=== PATIENT | male | born 1985 | race Caucasian/White ===

== ENCOUNTER 2017-01-27 13:41 | Observation (INO) | payer BC ==
[2017-01-27] MEDS ORDERED: NITROGLYCERIN OINT 1 INCH/GM PACKET TOPICAL STA (14:55)
[2017-01-27] MEDS ORDERED: ASPIRIN 81 MG CHEW PO STA (14:55)
--- NOTE | 2017-01-27 15:20 | XR ---
EXAMINATION TYPE: XR chest 2V DATE OF EXAM: 01/27/2017 COMPARISON: NONE HISTORY: Chest pain TECHNIQUE: Frontal and lateral views of the chest are obtained. FINDINGS: There is no focal air space opacity, pleural effusion, or pneumothorax seen. The cardiac silhouette size is within normal limits. There are overlying cardiac leads. There may be a spinal cur vature. The osseous structures are intact. IMPRESSION: No acute cardiopulmonary process.
[2017-01-27 15:24] LABS: ALT 101 U/L (21-72); AST 47 U/L (17-59); Alkaline Phosphatase 67 U/L (38-126); Anion Gap 11 mmol/L; Blood Urea Nitrogen 10 mg/dL (9-20); Calcium 9.7 mg/dL (8.4-10.2); Carbon Dioxide 25 mmol/L (22-30); Chloride 104 mmol/L (98-107); Glucose 78 mg/dL (74-99); Non-African American GFR(MDRD) >60 (>60 ml/min/1.73 sqM); Potassium 4.2 mmol/L (3.5-5.1); Sodium 140 mmol/L (137-145); Total Bilirubin 1.1 mg/dL (0.2-1.3); Total Protein 7.5 g/dL (6.3-8.2)
[2017-01-27 15:36] LABS: Basophils % (A) 0 %; CH 31.3; CHCM 34.9; Eosinophils # (A) 0.1 k/uL (0-0.7); Eosinophils % (A) 2 %; HCT 43.9 % (39.0-53.0); HGB 15.4 gm/dL (13.0-17.5); Luc % (Auto) 2; Lymphocytes # (A) 1.7 k/uL (1.0-4.8); Lymphocytes % (A) 25 %; MCH 31.5 pg (25.0-35.0); MCV 89.9 fL (80.0-100.0); Mean Platelet Volume 7.9; Monocytes # (A) 0.3 k/uL (0-1.0); Monocytes % (A) 5 %; Neutrophils # (A) 4.4 k/uL (1.3-7.7); Neutrophils % (A) 67 %; RBC 4.88 m/uL (4.30-5.90); WBC 6.6 k/uL (3.8-10.6); WBC (Perox) 6.93
[2017-01-27 15:37] LABS: Creatine Kinase 457 U/L (55-170)
[2017-01-27 15:50] LABS: Troponin I <0.012 ng/mL (0.000-0.034)
[2017-01-27 15:55] LABS: Creatine Kinase MB 3.9 ng/mL (0.0-2.4)
--- NOTE | 2017-01-27 17:00 | ED ---
Chest Pain HPI - General Chief Complaint: Chest Pain Stated Complaint: Chest Pain Time Seen by Provider: 01/27/17 14:48 Source: patient Mode of arrival: wheelchair Limitations: no limitations - History of Present Illness Initial Comments: This 31-year-old white male presents complaining of a chest pressure. This is in the midsternal region and bilateral chest. It is described as a tightness type of sensation. There is no radiation. He states that it there is a pleuritic component. It is not exertionally related. He denies any previous similar incidents. He denies any leg pain or swelling or history of DVT or PE. He denies any previous cardiac history. He's never had a stress test or heart catheterization. It is been present over the last 5 days. No other complaints or modifying factors. - Related Data Home Medications Medication Instructions Recorded Confirmed Albuterol Nebulized [Ventolin 2.5 mg INHALATION RT-DAILY PRN 01/27/17 01/27/17 Nebulized] Cyclobenzaprine [Flexeril] 10 mg PO DAILY PRN 01/27/17 01/27/17 Omeprazole [PriLOSEC] 20 mg PO DAILY 01/27/17 01/27/17 Oxymetazoline HCl [Vicks Sinex] 1 spray EA NOSTRIL DAILY PRN 01/27/17 01/27/17 Allergies Allergy/AdvReac Type Severity Reaction Status Date / Time topiramate [From Topamax] Allergy Anaphylaxis Verified 01/27/17 15:33 Review of Systems ROS Statement: Those systems with pertinent positive or pertinent negative responses have been documented in the HPI. ROS Other: All systems not noted in ROS Statement are negative. Past Medical History Past Medical History: No Reported History History of Any Multi-Drug Resistant Organisms: None Reported Past Surgical History: No Surgical Hx Reported Past Psychological History: No Psychological Hx Reported Smoking Status: Former smoker Past Alcohol Use History: None Reported Past Drug Use History: None Reported General Exam - General Exam Comments Initial Comments: GENERAL: The patient is well nourished and well hydrated. VITAL SIGNS: Heart rate, blood pressure, respiratory rate reviewed as recorded in nurse's notes. EYES: Pupils are round and reactive. Extraocular movements are intact. No conjunctival / lid redness or swelling. ENT: No external evidence of injury, swelling, or ecchymosis. Airway is patent. Throat is clear. NECK: Nontender. No swelling or evidence of injury. No subcutaneous emphysema. Trachea is midline. No thyroid mass. HEART: Regular rate and rhythm. Good peripheral pulses. LUNGS/CHEST: Breath sounds clear and equal bilaterally. No rales, rhonchi, or wheezes. No ecchymosis, subcutaneous emphysema, or tenderness. ABDOMEN: Abdomen soft without tenderness. No palpable masses or organomegaly. No peritoneal signs. No abdominal wall swelling or ecchymosis. EXTREMITIES: No extremity tenderness. Normal muscle tone and function. No thoracolumbar tenderness. NEUROLOGIC: Sensation is grossly intact. Cranial nerve exam reveals face is symmetrical, tongue is midline, speech is clear. SKIN: No abrasions or ecchymosis is noted. No induration or masses noted. PSYCHIATRIC: Alert and oriented. Appropriate behavior and judgment. Limitations: no limitations Course Vital Signs 01/27/17 01/27/17 01/27/17 13:45 14:55 16:55 Temperature 97.7 F Pulse Rate 71 59 L 68 Respiratory 17 20 18 Rate Blood Pressure 148/84 158/101 131/66 O2 Sat by Pulse 99 97 96 Oximetry Chest Pain MDM - MDM The patient was seen and examined. All diagnostics were reviewed. An IV started he is placed on the registered nurse cardiac telemetry. No ectopy is identified. The EKG shows a normal sinus rhythm at a rate of 65. There is no acute ST-T wave changes identified. The MS interval is 156, QRS duration is 98, and the QTC intervals 409. He received an aspirin at the urgent care prior to arrival so this was withheld. He does receive some Nitropaste. The chest x-ray does not show any acute process. The laboratories reviewed. His CPK and CK-MB are slightly elevated but the troponin is negative. Remainder of labs are essentially within normal limits. It is felt as though he would benefit from admission to the hospital to rule out acute coronary syndrome. Case will be discussed with internal medicine shortly. The patient is feeling improved on recheck. Disposition Clinical Impression: Chest pain, Unstable angina pectoris Disposition: HOME SELF-CARE Condition: Good Time of Disposition: 18:25 Decision Date: 01/27/17 Decision Time: 18:25
[2017-01-27 17:35] LABS: INR 1.1 (<1.1); Partial Thromboplastin Time 26.9 sec (22.0-30.0); Prothrombin Time 10.7 sec (9.0-12.0)
[2017-01-27] MEDS ORDERED: HEPARIN SODIUM,PORCINE 5,000 UNIT/ML 1 ML VIAL IV ONE (19:57)
[2017-01-27] MEDS ORDERED: NITROGLYCERIN SL TABS 0.4 MG TAB SUBLINGUAL PRN (19:57)
[2017-01-27] MEDS ORDERED: HEPARIN SODIUM,PORCINE 5,000 UNIT/ML 1 ML VIAL IV PRN (19:57)
[2017-01-27] MEDS ORDERED: HEPARIN SODIUM,PORCINE/D5W PMX 25,000 UNIT in DEXTROSE/WATER 1 500ML.BAG IV SCH (20:00)
[2017-01-27] MEDS ORDERED: CYCLOBENZAPRINE 10 MG TAB PO PRN (20:01)
[2017-01-27] MEDS ORDERED: OXYMETAZOLINE 0.05% NASL SPRAY 15 ML EA NOSTRIL PRN (20:01)
[2017-01-27] MEDS ORDERED: ALBUTEROL NEBULIZED 2.5 MG/3 ML INHALATION PRN (20:01)
[2017-01-27 21:10] VITALS: RESP 18
[2017-01-27 21:21] VITALS: BMI 37.5
[2017-01-27] MEDS ORDERED: ACETAMINOPHEN TAB 325 MG TAB PO PRN (21:24)
[2017-01-27 21:43] LABS: Creatine Kinase 361 U/L (55-170)
[2017-01-27 21:56] LABS: Troponin I <0.012 ng/mL (0.000-0.034)
[2017-01-27 21:57] LABS: Creatine Kinase MB 3.2 ng/mL (0.0-2.4)
[2017-01-28] MEDS: NITROGLYCERIN OINT 1 INCH/GM PACKET TOPICAL SCH ×3 (01:47→13:26)
[2017-01-28 02:21] LABS: Mean Platelet Volume 7.7
[2017-01-28 02:59] LABS: Creatine Kinase 329 U/L (55-170)
[2017-01-28 03:00] LABS: Cholesterol 145 mg/dL (<200); HDL Cholesterol 28 mg/dL (40-60); Triglycerides 333 mg/dL (<150)
[2017-01-28 03:12] LABS: Troponin I <0.012 ng/mL (0.000-0.034)
[2017-01-28 03:24] LABS: Creatine Kinase MB 2.9 ng/mL (0.0-2.4)
[2017-01-28] MEDS ORDERED: PANTOPRAZOLE 40 MG TABLET PO SCH (07:30)
[2017-01-28] MEDS ORDERED: ASPIRIN 325 MG TAB PO SCH (09:00)
[2017-01-28 12:10] VITALS: BP 144/95; PULSE 93; TEMP 97.4
--- NOTE | 2017-01-28 13:50 | CONS ---
This is a 31-year-old gentleman who is a reasonably active person, came into the hospital yesterday evening with complaints of having a nondescript chest pressure that has been going on for nearly 4 days or so, on and off. There is some pleuritic component to it but mostly are caused with the physical movement. Not related to physical activity. Only when he moves in a certain way, he has discomfort but it seem to persistently bother him. He has no other major risk factors. He does have history of bronchial asthma, uses some inhalers. At the time of my evaluation, his symptoms have resolved and resting comfortably. I am recommending that we discontinue heparin drip performed on the regular stress test and if this is normal, he can be discharged. PAST MEDICAL HISTORY: Unremarkable for any major medical problems other than bronchial asthma for which he takes some inhalers. MEDICATIONS: He takes Ventolin inhaler p.r.n. and Prilosec p.r.n. ALLERGIES: He is allergic to TOPIRAMATE. Review of systems are remarkable for nondescript chest tightness and pressure. No hematemesis, melena, genitourinary symptoms, fever with chills or cough with expectoration. EKG revealed a sinus mechanism with prominent J-point in precordial leads. No acute findings. The chest x-ray did not reveal any significant abnormalities. The d-dimer was unremarkable. Troponin levels were unremarkable. On examination, blood pressure was 130/70, pulse rate of 68 per minute and regular. HEENT: Unremarkable. Fundus was not examined by me. Neck is supple, no JVD. I do not hear a carotid bruit. There is no thyromegaly. Heart exam reveals S1, S2 heard normally without a rub, murmur or gallop. Lungs are clear. Abdomen is soft, nontender. Lower extremities reveal normal pulses, no edema. Central nervous system is normal. EKG reveals sinus mechanism, J-point prominence, no acute changes. IMPRESSION: 1. Atypical musculoskeletal chest pain. 2. Opacity. 3. History of bronchial asthma. PLAN: I am recommending a regular stress test and if this is normal, he can be discharged. I discussed my thoughts in detail with the patient. Thank you very much for the consult. DEISY
--- NOTE | 2017-01-28 14:45 | EST ---
Referral Reason:CHEST PAIN MEASUREMENTS -------- HEIGHT: 188.0 cm WEIGHT: 136.1 kg BP: FINDINGS -------- Utilizing the standard Kareem protocol the patient was exercised for 9minutes, 30seconds, achieving a maximum heart rate of 166 , which is 89% of predicted maximal heart rate. There was physiologic heart rate and blood pressure response to exercise. Max Heart Rate: 166 % of Max Predicted Heart Rate: 89% Rest Heart Rate: 83 Rest BP: 166/79 Max BP: 217/108 Mets Achieved: 11.1 The test was stopped because of fatigue. This level of exercise represents an average exercise tolerance for age. Sinus rhythm. In response to stress, the ECG showed no ST-T wave changes (see exercise report for details). In response to stress, the ECG showed no ST-T wave changes (see exercise report for details). There were normal blood pressure and heart rate responses to stress. LV size, wall thickness and systolic function are normal, with an EF of 60%. Echo images were acquired at peak stress which demonstrated appropriate augmentation of all left ventricular segments. CONCLUSIONS -------- 1. The test was stopped because of fatigue. 2. This level of exercise represents an average exercise tolerance for age. 3. In response to stress, the ECG showed no ST-T wave changes (see exercise report for details). 4. No 2D echocardiographic evidence of inducible ischemia to achieved workload. MIDDLE SCHOOL TECHNOLOGY TEACHER: Codie Polanco RDCS MTDD
[2017-01-28] MEDS ORDERED: methylPREDNISolone SOD SUCCI 125 MG/2 ML VIAL IV STA (14:54)
[2017-01-28] MEDS ORDERED: KETOROLAC 30 MG/ML 1 ML VIAL IVP STA (14:54)
--- NOTE | 2017-01-28 16:54 | P.HPIM ---
History of Present Illness H&P Date: 01/28/17 (Discharge summary as well) Chief Complaint: Chest pain 31-year-old gentleman with no significant family medical history of coronary disease comes in the hospital with chest pain 4 days. Patient states that it was sudden onset and was midsternal radiating to both sides of the chest exacerbated with deep breathing not associated with cough no recent fevers chills nausea vomiting diarrhea or abdominal pain reported Patient does not smoke tobacco or marijuana No previous similar episodes are reported Patient states that he exercises 1-2 times a week Prior to the onset of symptoms patient stated that he walked a mile on his treadmill without any recurrence of symptoms States that the symptoms have been kind of persistent since then hence came to the hospital for ongoing care at this time patient states that his symptoms are slightly improved after receiving some NSAIDs EKG did not reveal ST-T wave changes Review of Systems All systems: negative (Noted in HPI) Past Medical History Past Medical History: Asthma, GERD/Reflux History of Any Multi-Drug Resistant Organisms: None Reported Past Surgical History: No Surgical Hx Reported Past Anesthesia/Blood Transfusion Reactions: No Reported Reaction Past Psychological History: No Psychological Hx Reported Smoking Status: Former smoker Past Alcohol Use History: None Reported Past Drug Use History: None Reported Medications and Allergies Home Medications Medication Instructions Recorded Confirmed Type Albuterol Nebulized [Ventolin 2.5 mg INHALATION RT-DAILY PRN 01/27/17 01/27/17 History Nebulized] Cyclobenzaprine [Flexeril] 10 mg PO DAILY PRN 01/27/17 01/27/17 History Omeprazole [PriLOSEC] 20 mg PO DAILY 01/27/17 01/27/17 History Oxymetazoline HCl [Vicks Sinex] 1 spray EA NOSTRIL DAILY PRN 01/27/17 01/27/17 History Allergies Allergy/AdvReac Type Severity Reaction Status Date / Time topiramate [From Topamax] Allergy Anaphylaxis Verified 01/27/17 15:33 Physical Exam Vitals: Vital Signs Temp Pulse Pulse Resp BP BP Pulse Ox 01/28/17 12:09 97.4 F L 93 18 144/95 93 L 01/28/17 12:00 18 01/28/17 11:05 96 01/28/17 08:00 18 01/28/17 07:39 97.5 F L 64 18 135/79 96 01/28/17 05:00 97.6 F 80 18 135/79 80 L 01/28/17 04:00 98.0 F 53 L 18 130/62 95 01/28/17 00:00 18 01/27/17 21:07 98.5 F 67 18 137/64 95 01/27/17 21:00 62 18 01/27/17 20:17 97.9 F 64 16 145/67 97 01/27/17 19:09 97.0 F L 71 16 152/83 96 01/27/17 17:55 117/72 01/27/17 16:55 68 18 131/66 96 Intake and Output 01/28/17 01/28/17 01/28/17 06:59 14:59 22:59 Intake Total 134.667 240 Balance 134.667 240 Intake: IV 0 0 Invasive Line 1 0 0 Intake, IV Titration 134.667 Amount Heparin Sodium,Porcine/ 134.667 D5w Pmx 25,000 unit In Dextrose/Water 1 500ml. bag @ 7.4 UNITS/KG/HR 20. 13 mls/hr IV .Q24H [facility] Rx #:[id number] Oral 240 Other: Voiding Method Toilet Toilet # Voids 1 Physical exam Gen. appearance oriented 3 in no distress Neck is supple no JVD Lungs good air entry clear to auscultation no rhonchi or wheezing Heart S1-S2 heard regular rate and rhythm no murmurs appreciated Abdomen is soft nontender no organomegaly bowel sounds are intact Neurologically cranial nerves II-12 grossly intact no focal motor or sensory deficits noted Skin no abnormalities appreciated Results CBC & Chem 7: 01/28/17 02:10 01/27/17 15:00 Labs: Abnormal Lab Results - Last 24 Hours (Table) 01/27/17 01/28/17 01/28/17 Range/Units 21:01 02:10 02:10 APTT (22.0-30.0) sec Total Creatine Kinase 361 H 329 H (55-170) U/L CK-MB (CK-2) 3.2 H* 2.9 H* (0.0-2.4) ng/mL Triglycerides 333 H (<150) mg/dL HDL Cholesterol 28 L (40-60) mg/dL 01/28/17 Range/Units 08:59 APTT 32.1 H (22.0-30.0) sec Total Creatine Kinase (55-170) U/L CK-MB (CK-2) (0.0-2.4) ng/mL Triglycerides (<150) mg/dL HDL Cholesterol (40-60) mg/dL Assessment and Plan Plan: 1 atypical chest pain likely pleuritic in nature Plan Patient underwent a dobutamine echo appeared to have poor exercise tolerance patient was only able to perform less than 5 minutes on the modified protocol Discussed patient should increase his intensity Patient will be given a dose of Solu-Medrol for his pleuritic chest pain and one dose of Toradol 30 mg IV thereafter will be discharged home and will is recommended to follow up with Dr. Barclay in 1 week if patient has recurrent symptoms discussed using NSAIDs with [id number] ibuprofen thereafter
--- NOTE | 2017-01-29 16:13 | ECHOF ---
Referral Reason: MEASUREMENTS -------- HEIGHT: 188.0 cm WEIGHT: 136.1 kg BP: 135/79 RVIDd: 2.5 cm (< 3.3) IVSd: 1.2 cm (0.6 - 1.1) LVIDd: 4.6 cm (3.9 - 5.3) LVPWd: 1.3 cm (0.6 - 1.1) IVSs: 1.4 cm LVIDs: 4.0 cm LVPWs: 1.4 cm LA Diam: 4.0 cm (2.7 - 3.8) LAESV Index (A-L): 22.41 ml/m Ao Diam: 3.3 cm (2.0 - 3.7) AV Cusp: 2.2 cm (1.5 - 2.6) LA Diam: 4.7 cm (2.7 - 3.8) MV EXCURSION: 18.742 mm (> 18.000) MV EF SLOPE: 74 mm/s (70 - 150) EPSS: 0.7 cm MV E Ray: 0.79 m/s MV DecT: 179 ms MV A Ray: 0.56 m/s MV E/A Ratio: 1.42 RAP: 5.00 mmHg RVSP: 29.26 mmHg FINDINGS -------- Sinus rhythm. This was a technically adequate study. Morbid Obesity There is mild concentric left ventricular hypertrophy. Overall left ventricular systolic function is normal with, an EF between 55 - 60 %. The right ventricle is normal in size. Normal LA size by volume 22+/-6 ml/m2. The right atrial size is normal. The aortic valve is trileaflet, and appears structurally normal. No aortic stenosis or regurgitation. The mitral valve is normal. Mild mitral regurgitation is present. Mild tricuspid regurgitation present. There is no evidence of pulmonary hypertension. The right ventricular systolic pressure, as measured by Doppler, is 29.26mmHg. The pulmonic valve is normal. Trace/mild (physiologic) pulmonic regurgitation. The aortic root size is normal. There is no pericardial effusion. CONCLUSIONS -------- 1. Sinus rhythm. 2. Trace/mild (physiologic) pulmonic regurgitation. 3. The aortic root size is normal. 4. There is no pericardial effusion. 5. Morbid Obesity 6. There is mild concentric left ventricular hypertrophy. 7. Overall left ventricular systolic function is normal with, an EF between 55 - 60 %. 8. Normal LA size by volume 22+/-6 ml/m2. 9. The aortic valve is trileaflet, and appears structurally normal. No aortic stenosis or regurgitation. 10. Mild mitral regurgitation is present. 11. Mild tricuspid regurgitation present. 12. There is no evidence of pulmonary hypertension. FINANCIAL REPORTING ADVISOR: Codie Polanco RDCS
== END 2017-01-28 15:33 | disposition home or self-care (01) ==
LOC: EC 13:41 → 3OBS 19:57
PROVIDERS: ADMIT Internal Medicine; ATTEND Internal Medicine
DX: R07.89 Other chest pain (principal); K21.9 Gastro-esophageal reflux disease without esophagitis; J45.909 Unspecified asthma, uncomplicated; Z79.899 Other long term (current) drug therapy; Z88.8 Allergy status to other drugs, medicaments and biological substances; Z87.891 Personal history of nicotine dependence
CPT/HCPCS: 96376 ×2; 99285; 96365; 96366 ×2; 96375; 36415; 94760; 93005; 93017; 93306; 93350; 85379; 83880; 80061; 80053; 82550 ×2; 82553 ×2; 83735; 84484 ×2; 85025; 85049; 85610; 85730 ×2; 71020; G0378 ×2; J1644 ×2; J2930; J1885

== ENCOUNTER → 2017-02-22 | Outpatient (CLI) | payer BC ==
[2017-02-23 12:34] LABS: Alternaria alternata IgE 3.57 kU/L (<0.35); Asperg. fumagatus IgE <0.35 kU/L (<0.35); Asperg. fumagatus IgE Class CLASS 0; Aureo. pullulans IgE <0.35 kU/L (<0.35); Avocado Class CLASS 0; Banana IgE Class CLASS 0; Birch(Com.Silvr) IgE Class CLASS II; Candida albicans IgE Class CLASS 0; Cat Epith & Dander IgE <0.35 kU/L (<0.35); Cat Epith & Dander IgE Class CLASS 0; Clad herbarum IgE <0.35 kU/L (<0.35); Clad herbarum IgE Class CLASS 0; Com. Pigweed IgE 0.54 kU/L (<0.35); Com. Pigweed IgE Class CLASS I; Common Ragweed IgE Class CLASS II; Dermato. Pteronyssinus Class CLASS III; Dermato. Pteronyssinus IgE 5.18 kU/L (<0.35); Dermato. farinae IgE 6.36 kU/L (<0.35); Dermato. farinae IgE Class CLASS III; English Plantain IgE Class CLASS 0; Epicoccum purpurascens Class CLASS 0; Epicoccum purpurascens IgE <0.35 kU/L (<0.35); Hazelnut IgE 1.04 kU/L (<0.35); Hazelnut IgE Class CLASS II; Johnson Grass IgE Class CLASS II; Kiwi IgE <0.35 kU/L (<0.35); Kiwi IgE Class CLASS 0; Lamb's Quarter IgE 0.53 kU/L (<0.35); Lamb's Quarter IgE Class CLASS I; Latex IgE Class CLASS 0; Maple (Box Elder) IgE 0.89 kU/L (<0.35); Maple (Box Elder) IgE Class CLASS II; Mucor racemosus IgE <0.35 kU/L (<0.35); Mucor racemosus IgE Class CLASS 0; Oak IgE 0.61 kU/L (<0.35); Rhizopus nigricans IgE <0.35 kU/L (<0.35); Rhizopus nigricans IgE Class CLASS 0; S.rostrata/Helminth Class CLASS 0; S.rostrata/Helminth IgE <0.35 kU/L (<0.35); Sycamore(Mpl.Lf) IgE <0.35 kU/L (<0.35); Sycamore(Mpl.Lf) IgE Class CLASS 0; Timothy Grass IgE 6.02 kU/L (<0.35); Timothy Grass IgE Class CLASS III; Walnut Tree IgE 0.38 kU/L (<0.35); White Ash IgE Class CLASS 0
== END | disposition home or self-care (01) ==
LOC: LABWHC1 11:09
PROVIDERS: ATTEND Otolaryngology
DX: J30.89 Other allergic rhinitis (principal)
CPT/HCPCS: 36415; 86003

== ENCOUNTER 2022-10-01 12:06 | Emergency (ER) | payer BC ==
[2022-10-01 12:43] VITALS: RESP 20; TEMP 98
--- NOTE | 2022-10-01 13:50 | ED ---
Abdominal Pain HPI - General Source: patient, RN notes reviewed Mode of arrival: ambulatory Limitations: no limitations <Rafael Mattson - Last Filed: 10/01/22 16:50> <Kimber Robert - Last Filed: 10/02/22 01:11> - General Chief Complaint: Abdominal Pain Stated Complaint: painful bowel movement Time Seen by Provider: 10/01/22 13:50 - History of Present Illness Initial Comments: 44-year-old male presents emergency department for rectal pain. Patient states he just finished Paxlovid for covid. Patient states that he started having severe pain with almost. He states he is not straining is no trauma he states he feels like he had a bowel movement with razor blades. Patient states he has no significant bleeding is no abdominal pain he states he had hemorrhoids in the past does not feel similar (Rafael Mattson) Patient is a 36-year-old male presenting with chief complaint of rectal pain. Patient reports pain with bowel movements for the last 2 days. He states that it feels like "razor blades". Patient did notice a very small amount of dark red blood when he wipes. Patient has history of hemorrhoids, states that this does not feel like previous hemorrhoids. He has been using hemorrhoid creams and suppositories which has not helped the pain. He has been using sitz baths as needed. No abdominal pain, diarrhea, constipation, fever, chills. (Sarahy Robert) - Related Data Home Medications Medication Instructions Recorded Confirmed Albuterol Nebulized [Ventolin 2.5 mg INHALATION RT-DAILY PRN 01/27/17 01/27/17 Nebulized] Cyclobenzaprine [Flexeril] 10 mg PO DAILY PRN 01/27/17 01/27/17 Omeprazole [PriLOSEC] 20 mg PO DAILY 01/27/17 01/27/17 Oxymetazoline HCl [Vicks Sinex] 1 spray EA NOSTRIL DAILY PRN 01/27/17 01/27/17 Previous Rx's Medication Instructions Recorded Lidocaine 5% Oint [Xylocaine 5% 1 applic TOPICAL BID #50 gm 10/01/22 Oint] Allergies Allergy/AdvReac Type Severity Reaction Status Date / Time topiramate [From Topamax] Allergy Anaphylaxis Verified 10/01/22 12:42 Review of Systems ROS Other: All systems not noted in ROS Statement are negative. <Rafael Mattson - Last Filed: 10/01/22 16:50> ROS Other: All systems not noted in ROS Statement are negative. <Kimber Robert - Last Filed: 10/02/22 01:11> ROS Statement: Those systems with pertinent positive or pertinent negative responses have been documented in the HPI. Past Medical History Past Medical History: Asthma, GERD/Reflux History of Any Multi-Drug Resistant Organisms: None Reported Past Surgical History: No Surgical Hx Reported Past Anesthesia/Blood Transfusion Reactions: No Reported Reaction Past Psychological History: No Psychological Hx Reported Smoking Status: Former smoker Past Alcohol Use History: None Reported Past Drug Use History: None Reported <Rafael Mattson - Last Filed: 10/01/22 16:50> General Exam Limitations: no limitations <Rafael Mattson - Last Filed: 10/01/22 16:50> Limitations: no limitations General appearance: alert, in no apparent distress Head exam: Present: atraumatic, normocephalic, normal inspection Eye exam: Present: normal appearance Neck exam: Present: normal inspection, full ROM Rectal exam: Present: normal inspection, normal rectal tone. Absent: hemorrhoids Neurological exam: Present: alert, oriented X3, CN II-XII intact Psychiatric exam: Present: normal affect, normal mood Skin exam: Present: warm, dry, intact, normal color. Absent: rash <Kimber Robert - Last Filed: 10/02/22 01:11> - General Exam Comments Initial Comments: Visual Physical Exam Vital signs reviewed General: Well-appearing, nontoxic, no acute distress. Head: Normocephalic, atraumatic Eyes: PERRLA, EOMI ENT: Airway patent Chest: Nonlabored breathing Skin: No visual rash, normal skin tone Neuro: Alert and oriented 3 Musculoskeletal: No gross abnormalities (Rafael Mattson) Course Vital Signs 10/01/22 10/01/22 10/01/22 12:37 14:06 16:49 Temperature 98.0 F Pulse Rate 93 117 H 65 Respiratory 20 20 Rate Blood Pressure 146/93 149/100 134/96 O2 Sat by Pulse 96 97 95 Oximetry Medical Decision Making - Lab Data Result diagrams: 10/01/22 14:03 03/16/23 14:03 <Rafael Mattson - Last Filed: 10/01/22 16:50> - Lab Data Result diagrams: 10/01/22 14:03 10/01/22 14:03 <Kimber Robert - Last Filed: 10/02/22 01:11> - Medical Decision Making Was pt. sent in by a medical professional or institution ([facility], [facility], urgent care, hospital, or jail...) When possible be specific @ -No Did you speak to anyone other than the patient for history (EMS, parent, family, police, friend...)? What history was obtained from this source @ -No Did you review nursing and triage notes (agree or disagree)? Why? @ -I reviewed and agree with nursing and triage notes Were old charts reviewed (outside hosp., previous admission, EMS record, old EKG, old radiological studies, urgent care reports/EKG's, jail records)? Report findings @ -No old charts were reviewed Differential Diagnosis (chest pain, altered mental status, abdominal pain women, abdominal pain men, vaginal bleeding, weakness, fever, dyspnea, syncope, headache, dizziness, GI bleed, back pain, seizure, CVA, palpatations, mental health, musculoskeletal)? @ -Differential diagnosis includes anal fissure, hemorrhoid, anorectal abscess, this is not an all inclusive list EKG interpreted by me (3pts min.). @ -As above X-rays interpreted by me (1pt min.). @ -None done CT interpreted by me (1pt min.). @ -None done U/S interpreted by me (1pt. min.). @ -None done What testing was considered but not performed or refused? (CT, X-rays, U/S, labs)? Why? @ -None What meds were considered but not given or refused? Why? @ -None Did you discuss the management of the patient with other professionals (professionals i.e. [facility], [facility] [employer], lab, RT, psych nurse, social media community manager, rn emergency, teacher, founder and chief executive officer, patient case manager)? Give summary @ -No Was smoking cessation discussed for >3mins.? @ -No Was critical care preformed (if so, how long)? @ -No Were there social determinants of health that impacted care today? How? (Homelessness, low income, unemployed, alcoholism, drug addiction, transportation, low edu. Level, literacy, decrease access to med. care, shelter, rehab)? @ -No Was there de-escalation of care discussed even if they declined (Discuss DNR or withdrawal of care, Hospice)? DNR status @ -No What co-morbidities impacted this encounter? (DM, HTN, Smoking, COPD, CAD, Cancer, CVA, ARF, Chemo, Hep., AIDS, mental health diagnosis, sleep apnea, morbid obesity)? @ -None Was patient admitted / discharged? Hospital course, mention meds given and route, prescriptions, significant lab abnormalities, going to OR and other pertinent info. @ -Patient is a 36-year-old male presenting with chief complaint of rectal pain with bowel movements the last 2 days. Patient states the pain feels like "razor blades". On physical examination no hemorrhoids are noted, patient has pain when assessing for rectal tone and internal hemorrhoids. Patient's pain and presentation is most consistent with anal fissures. Patient is educated on supportive treatment and prescribed lidocaine ointment for discomfort. Patient is instructed to take Metamucil and MiraLAX as needed to keep stools loose and prevent any constipation which would further worsened symptoms. Use sitz baths as needed. Follow-up with PCP. Report back to ER with any new or worsening symptoms. Discussed return parameters and answered all questions. Patient conveyed verbal understanding and agreed to the plan. I discussed this case in detail with my attending Dr. Izaguirre Undiagnosed new problem with uncertain prognosis? @ -No Drug Therapy requiring intensive monitoring for toxicity (Heparin, Nitro, Insulin, Cardizem)? @ -No Were any procedures done? @ -No Diagnosis/symptom? @ -Anal fissure Acute, or Chronic, or Acute on Chronic? @ -Acute Uncomplicated (without systemic symptoms) or Complicated (systemic symptoms)? @ -Uncomplicated Side effects of treatment? @ -No Exacerbation, Progression, or Severe Exacerbation? @ -No Poses a threat to life or bodily function? How? (Chest pain, [place], [place], pneumonia, PE, COPD, DKA, ARF, appy, cholecystitis, CVA, Diverticulitis, Homicidal, Suicidal, threat to staff... and all critical care pts) @ -No (Kimber Robert) - Lab Data Lab Results 10/01/22 10/01/22 Range/Units 14:03 14:03 WBC 5.8 (3.8-10.6) k/uL RBC 5.46 (4.30-5.90) m/uL Hgb 17.1 (13.0-17.5) gm/dL Hct 49.6 (39.0-53.0) % MCV 90.8 (80.0-100.0) fL MCH 31.3 (25.0-35.0) pg MCHC 34.4 (31.0-37.0) g/dL RDW 11.6 (11.5-15.5) % Plt Count 245 (150-450) k/uL MPV 8.1 Neutrophils % 65 % Lymphocytes % 25 % Monocytes % 6 % Eosinophils % 2 % Basophils % 1 % Neutrophils # 3.7 (1.3-7.7) k/uL Lymphocytes # 1.5 (1.0-4.8) k/uL Monocytes # 0.4 (0-1.0) k/uL Eosinophils # 0.1 (0-0.7) k/uL Basophils # 0.0 (0-0.2) k/uL Sodium 138 (137-145) mmol/L Potassium 4.6 (3.5-5.1) mmol/L Chloride 103 (98-107) mmol/L Carbon Dioxide 27 (22-30) mmol/L Anion Gap 8 mmol/L BUN 14 (9-20) mg/dL Creatinine 1.16 (0.66-1.25) mg/dL Est GFR (CKD-EPI)AfAm >90 (>60 ml/min/1.73 sqM) Est GFR (CKD-EPI)NonAf 80 (>60 ml/min/1.73 sqM) Glucose 86 (74-99) mg/dL Calcium 9.7 (8.4-10.2) mg/dL Total Bilirubin 0.9 (0.2-1.3) mg/dL AST 31 (17-59) U/L ALT 62 H (4-49) U/L Alkaline Phosphatase 60 (38-126) U/L Total Protein 7.9 (6.3-8.2) g/dL Albumin 4.7 (3.5-5.0) g/dL Disposition <Rafael Mattson - Last Filed: 10/01/22 16:50> Is patient prescribed a controlled substance at d/c from ED?: No Time of Disposition: 16:32 <Kimber Robert - Last Filed: 10/02/22 01:11> Clinical Impression: Anal fissure Disposition: HOME SELF-CARE Condition: Good Instructions (If sedation given, give patient instructions): Anal Fissure (ED) Additional Instructions: Follow-up with PCP. Report back to ER with any new or worsening symptoms. Apply lidocaine ointment as needed. He high-fiber diet. Advise taking MiraLAX and Metamucil to prevent constipation. Take sitz baths as needed. Prescriptions: Lidocaine 5% Oint [Xylocaine 5% Oint] 1 applic TOPICAL BID #50 gm Referrals: Charles Sandoval MD [Primary Care Provider] - 1-2 days
[2022-10-01 14:51] LABS: Basophils % (A) 1 %; Eosinophils # (A) 0.1 k/uL (0-0.7); Eosinophils % (A) 2 %; HCT 49.6 % (39.0-53.0); HGB 17.1 gm/dL (13.0-17.5); Lymphocytes # (A) 1.5 k/uL (1.0-4.8); Lymphocytes % (A) 25 %; MCH 31.3 pg (25.0-35.0); MCHC 34.4 g/dL (31.0-37.0); MCV 90.8 fL (80.0-100.0); Mean Platelet Volume 8.1; Monocytes # (A) 0.4 k/uL (0-1.0); Monocytes % (A) 6 %; Neutrophils # (A) 3.7 k/uL (1.3-7.7); Neutrophils % (A) 65 %; Platelet Count 245 k/uL (150-450); RBC 5.46 m/uL (4.30-5.90); RDW 11.6 % (11.5-15.5); WBC 5.8 k/uL (3.8-10.6)
[2022-10-01 14:55] LABS: ALT 62 U/L (4-49); AST 31 U/L (17-59); African American GFR (CKD) >90 (>60 ml/min/1.73 sqM); Albumin 4.7 g/dL (3.5-5.0); Alkaline Phosphatase 60 U/L (38-126); Anion Gap 8 mmol/L; Blood Urea Nitrogen 14 mg/dL (9-20); Calcium 9.7 mg/dL (8.4-10.2); Carbon Dioxide 27 mmol/L (22-30); Chloride 103 mmol/L (98-107); Glucose 86 mg/dL (74-99); Non-African American GFR(CKD) 80 (>60 ml/min/1.73 sqM); Potassium 4.6 mmol/L (3.5-5.1); Sodium 138 mmol/L (137-145); Total Bilirubin 0.9 mg/dL (0.2-1.3); Total Protein 7.9 g/dL (6.3-8.2)
[2022-10-01 16:50] VITALS: BP 134/96; PULSE 65
== END 2022-10-01 16:51 | disposition home or self-care (01) ==
LOC: EC 12:06
DX: K60.2 Anal fissure, unspecified (principal); J45.909 Unspecified asthma, uncomplicated; K21.9 Gastro-esophageal reflux disease without esophagitis; Z79.899 Other long term (current) drug therapy; Z87.891 Personal history of nicotine dependence
CPT/HCPCS: 36415; 80053; 85025; 99284

== ENCOUNTER → 2024-04-12 | Outpatient (CLI) | payer BC ==
--- NOTE | 2024-04-12 17:50 | US ---
EXAMINATION TYPE: US abdomen limited DATE OF EXAM: 04/12/2024 COMPARISON: NONE CLINICAL INDICATION: Male, 38 years old with history of R19.01 LUMP ON RUQ; patient felt lump on RUQ area that is tender to the touch, has h/o of lipomas on other parts of body TECHNIQUE: soft tissue lump FINDINGS: 1.4 x 1.3 x 1.4cm hyperechoic lesion that is soft and compressible, smaller 2nd lesion not ed adjacent to it. IMPRESSION: Findings compatible with lipomas. [facility], , 04/12/2024 5:47 PM
== END | disposition home or self-care (01) ==
LOC: RADUSWWP 07:07
PROVIDERS: ATTEND Family Medicine
DX: R19.01 Right upper quadrant abdominal swelling, mass and lump (principal)
CPT/HCPCS: 76705

== ENCOUNTER → 2024-05-08 | Day surgery (SDC) | payer BC ==
[~2024-05-08] MED LIST: ALBUTEROL HFA INHALER INHALATION ONE; GLYCOPYRROLATE 0.2 MG/ML 2 ML VIAL ONE; HYDROmorphone 0.5 MG/0.5 ML SYRINGE IVP PRN; LIDOCAINE 1% (10MG/ML) FOR IV START INTRADERMA PRN; LIDOCAINE 1% INJ 10MG/ML (20 ML MDV) ONE; MIDAZOLAM 2 MG/2 ML VIAL ONE; PROPOFOL 10 MG/ML 20 ML VIAL IV ONE; Pre Op ABX Message 1 EACH MISC MISCELLANE ONE; fentaNYL (PF) 50 MCG/ML 2 ML AMP ONE
[2024-05-08] MEDS: IV FLUID CONTINUATION 1,000 ML IV ONE ×2 (07:48)
[2024-05-08 07:56] LABS: Glucose,Whole Blood 95 mg/dL (70-110)
[2024-05-08] MEDS: LACTATED RINGERS 1,000 ML IV SCH (07:57)
[2024-05-08] MEDS: HEPARIN SODIUM,PORCINE 5,000 UNIT/ML 1 ML VIAL SQ PRN (07:59)
[2024-05-08] MEDS: ACETAMINOPHEN TAB 500 MG TAB PO PRN (07:59)
[2024-05-08] MEDS: ONDANSETRON 4 MG/2 ML VIAL IVP ONE (07:59)
[2024-05-08] MEDS: DEXAMETHASONE SOD PHOSPHATE 4 MG/ML 1 ML VIAL IVP STA (08:00)
[2024-05-08 08:11] LABS: HCT 44.7 % (39.0-53.0); HGB 14.9 gm/dL (13.0-17.5); MCH 31.3 pg (25.0-35.0); MCHC 33.2 g/dL (31.0-37.0); MCV 94.2 fL (80.0-100.0); Platelet Count 228 k/uL (150-450); RBC 4.75 m/uL (4.30-5.90); RDW 11.7 % (11.5-15.5); WBC 6.2 k/uL (3.8-10.6)
[2024-05-08] MEDS: FAMOTIDINE 20 MG/2 ML VIAL IV STA (08:11)
[2024-05-08] MEDS: LIDOCAINE 1%-EPI 1:100,000 20 ML VIAL SQ ONE ×2 (08:26→09:19)
--- NOTE | 2024-05-08 08:33 | P.GSHP ---
History of Present Illness H&P Date: 05/08/24 Chief Complaint: Abdominal wall lipoma This a 38-year-old male who has an abdominal wall lipoma. Patient complains of a tender mass in his right lateral abdominal wall. Past Medical History Past Medical History: Asthma, GERD/Reflux, Hypertension, Osteoarthritis (OA), Thyroid Disorder Additional Past Medical History / Comment(s): hx. fatty liver History of Any Multi-Drug Resistant Organisms: None Reported Past Surgical History: No Surgical Hx Reported Additional Past Surgical History / Comment(s): wisdom teeth removed Past Anesthesia/Blood Transfusion Reactions: No Reported Reaction Smoking Status: Former smoker - Past Family History Mother Family Medical History: No Reported History Medications and Allergies Home Medications Medication Instructions Recorded Confirmed Type ALPRAZolam [Xanax] 0.25 mg PO BID PRN 05/03/24 05/08/24 History Albuterol Inhaler [Ventolin Hfa 1 - 2 puff INHALATION Q6H PRN 05/03/24 05/08/24 History Inhaler] Albuterol Nebulized [Ventolin 1.25 mg INHALATION DIRECTED PRN 05/03/24 05/08/24 History Nebulized (Accuneb)] Levothyroxine Sodium [Synthroid] 100 mcg PO DAILY 05/03/24 05/08/24 History Multivitamins, Thera [Multivitamin 1 tab PO DAILY 05/03/24 05/08/24 History (formulary)] Pantoprazole [Protonix] 40 mg PO DAILY 05/03/24 05/08/24 History Semaglutide [Wegovy] 1 mg SQ SA 05/03/24 05/08/24 History lisinopriL [Zestril] 10 mg PO DAILY 05/03/24 05/08/24 History Allergies Allergy/AdvReac Type Severity Reaction Status Date / Time topiramate [From Topamax] Allergy Anaphylaxis Verified 05/08/24 07:42 Surgical - Exam Vital Signs Temp Pulse Resp BP Pulse Ox 97.8 F 61 14 124/81 97 05/08/24 07:41 05/08/24 07:41 05/08/24 07:41 05/08/24 07:41 05/08/24 07:41 - General well developed - Eyes PERRL - ENT normal pinna - Neck no masses - Respiratory normal expansion - Cardiovascular Rhythm: regular - Abdomen 2 cm abdominal wall lipoma located right lateral wall Abdomen: soft, non tender Results - Labs 05/08/24 08:05 Assessment and Plan Assessment: Abdominal lipoma. Will perform excision.
--- NOTE | 2024-05-08 09:34 | P.OP ---
Date of Procedure: 05/08/24 Preoperative Diagnosis: Abdominal wall lipoma Postoperative Diagnosis: Abdominal wall lipoma Procedure(s) Performed: Excision of right abdominal wall lipoma Anesthesia: TRACIE Surgeon: Alberto Jerome Estimated Blood Loss (ml): 5 Pathology: other (Abdominal lipoma) Condition: stable Disposition: PACU Description of Procedure: Patient was placed on the operative table in the supine position. He received general endotracheal tube anesthesia. His abdomen was prepped and draped you sterile fashion. The patient had abdominal wall lipoma on the right lateral abdominal wall. Skin incised over the lipoma. And then using blunt sharp dissection 2 lipomas removed the lipoma measured approximately 2 cm in diameter. Hemostasis achieved electrocautery. Skin was closed interrupted 3-0 Monocryl suture. Dermabond dressings applied. Patient Toller procedure well. He was sent to recovery room in stable condition.
[2024-05-08 09:40] VITALS: RESP 16; TEMP 97
[2024-05-08 10:35] VITALS: BP 112/71; PULSE 73
== END | disposition home or self-care (01) ==
LOC: OR 07:28
PROVIDERS: ATTEND Surgery
CPT/HCPCS: 85027; 88304